=== PATIENT | male | born 1970 | race Caucasian/White ===

== ENCOUNTER → 2020-08-24 | Outpatient (CLI) | payer MEDICARE, OTHER ==
[~2020-08-24] MED LIST: AUGMENTIN 875-1 EACH PO; CIPRO500 MG PO; GLUCOPHAGE 500500 MG PO; GLUCOTROL5 MG PO; LEVAQUIN TAB 5500 MG PO; LOPRESSOR 25 MG25 MG PO; LOPRESSOR 50 MG50 MG PO; LORTAB 7.5-3251 EACH PO; NORVASC 5 MG TAB5 MG PO; VANCOCIN 125MG/2.5ML IV; VITAMIN C 500500 MG PO; VITAMIN C500 M1 PO; VITAMIN D350000 UNIT PO; ZESTRIL2.5 MG PO; ZOFRAN4 MG PO
== END ==
LOC: KOH-I 09:46
DX: M14.672 Charcot's joint, left ankle and foot (principal)
CPT/HCPCS: 73630